=== PATIENT | male | born 1960 | race Hispanic/Latino ===

== ENCOUNTER → 2022-03-16 | Outpatient (CLI) | payer MEDICARE | END | disposition home or self-care (01) | LOC: RAH 11:49 | PROVIDERS: ATTEND Podiatrist | DX: S90.112A Contusion of left great toe without damage to nail, initial encounter (principal); S90.32XA Contusion of left foot, initial encounter; X58.XXXA Exposure to other specified factors, initial encounter; Y93.89 Activity, other specified; Y92.89 Other specified places as the place of occurrence of the external cause; Y99.8 Other external cause status | CPT/HCPCS: 73630 ==

== ENCOUNTER → 2022-03-28 | Outpatient (CLI) | payer MEDICARE | END | disposition home or self-care (01) | LOC: RAH 08:31 | PROVIDERS: ATTEND Podiatrist | DX: E11.51 Type 2 diabetes mellitus with diabetic peripheral angiopathy without gangrene (principal) | CPT/HCPCS: 93922 ==

== ENCOUNTER → 2022-04-21 | Outpatient (CLI) | payer MEDICARE | END | disposition home or self-care (01) | LOC: RAH 08:05 | PROVIDERS: ATTEND Podiatrist | DX: S90.112D Contusion of left great toe without damage to nail, subsequent encounter (principal); E11.51 Type 2 diabetes mellitus with diabetic peripheral angiopathy without gangrene; M79.89 Other specified soft tissue disorders; X58.XXXD Exposure to other specified factors, subsequent encounter | CPT/HCPCS: 73630 ==

== ENCOUNTER 2023-12-28 07:22 | Day surgery (SDC) | payer MEDICARE ==
[2023-12-24 11:21] VITALS: BP 136/67; PULSE 55; RESP 18
[2023-12-24 11:21] LABS: BASOPHILS # (AUTO) 0.04 K/uL (0.00-0.20); BASOPHILS % (AUTO) 0.6 % (0.0-5.0); EOSINOPHILS # (AUTO) 0.32 K/uL (0.00-0.70); EOSINOPHILS % (AUTO) 4.8 % (0.0-8.0); HEMATOCRIT 43.7 % (42-54); IMMATURE GRANULOCYTE ABSOLUTE 0.03 K/uL (0-1); LYMPHOCYTES # (AUTO) 1.4 K/uL (1.0-4.8); LYMPHOCYTES % (AUTO) 21.2 % (21.0-51.0); MEAN CORPUSCULAR HEMOGLOBIN 32.3 pg (27.0-33.0); MEAN CORPUSCULAR HGB CONC 33.2 g/dL (32.0-36.0); MEAN CORPUSCULAR VOLUME 97.3 fL (79-99); MONOCYTES # (AUTO) 0.5 K/uL (0.1-1.0); MONOCYTES % (AUTO) 7.5 % (3.0-13.0); NEUTROPHILS # (AUTO) 4.4 K/uL (1.8-7.7); NEUTROPHILS % (AUTO) 65.4 % (40.0-77.0); PLATELET COUNT (AUTO) 113 K/uL (130-400); RED BLOOD CELL COUNT(AUTO) 4.49 MIL/uL (4.50-6.20); RED CELL DISTRIBUTION WIDTH 13.7 % (11.0-15.5); WHITE BLOOD COUNT (AUTO) 6.7 K/uL (4.8-10.8)
[2023-12-24 11:26] LABS: ALBUMIN 3.6 g/dL (3.5-5.0); BILIRUBIN,TOTAL 0.5 mg/dL (0.2-1.0)
[2023-12-24 11:28] LABS: INR <= 0.93 (0.85-1.15); PROTHROMBIN TIME 10.1 SEC (9.6-11.6)
[2023-12-24 11:29] LABS: PARTIAL THROMBOPLASTIN TIME 27.2 SEC (26.3-35.5)
[2023-12-24 11:38] LABS: CREATININE 10.7 mg/dL (0.5-1.3); POTASSIUM 6.5 mmol/L (3.5-5.1)
[~2023-12-28] VITALS: Ht 170.2 cm; Wt 76.6 kg
[2023-12-28] VITALS (14 sets, daily range): BP systolic 142–175; BP diastolic 68–86; PULSE 63–68; RESP 14–18
[~2023-12-28 07:22] MED LIST: AMLO10TA4 PO; CHOL100040 PO; FOLI1TAB85 PO; HYDR50TA37 PO; INSU100C6 SQ; INSU100V37 SQ; LOSA100T59 PO; METO50TA18 PO; PRAV10TA39 PO
[2023-12-28] MEDS ORDERED: 0.9% NACL 500ML IV.SOLN 500 ML IV ONE (08:51)
[2023-12-28 09:26] LABS: POTASSIUM 4.3 mmol/L (3.5-5.1)
[2023-12-28 09:30] LABS: CREATININE 8.5 mg/dL (0.5-1.3)
[2023-12-28] MEDS ORDERED: proPOFol 10 MG/ML 20ML VIAL IV ONE (09:42)
[2023-12-28] MEDS ORDERED: LIDOCAINE PF 100MG/5ML (2%) SYRINGE 5ML ONE (09:42)
[2023-12-28] MEDS ORDERED: PHENYLEPHRINE HCL 10 MG/ML 1ML VIAL IV ONE (09:42)
[2023-12-28] MEDS ORDERED: ONDANSETRON 4MG INJ ONE (09:43)
[2023-12-28] MEDS ORDERED: FENTanyl CITRate PF 50 MCG/1 ML 2ML VIAL ONE ×2 (09:43→11:42)
[2023-12-28] MEDS: ceFAZolin SODIUM 2 GM VIAL ONE (10:10)
[2023-12-28] MEDS ORDERED: HEParin-NS 1,000 UNIT/500 ML 500 ML IV ONE (10:22)
[2023-12-28] MEDS ORDERED: ePHEDrine SULFate 50 MG/ML AMPULE ONE (10:27)
[2023-12-28] MEDS: BUPIvacaine/PF 0.25% 30ML VIAL IJ ONE (10:44)
[2023-12-28] MEDS: LIDOCAINE HCL 1% 20 ML VIAL ONE (10:45)
[2023-12-28] MEDS: hydrALAZine 20MG/ML VIAL ONE (14:23)
== END 2023-12-28 15:10 | disposition home or self-care (01) ==
LOC: DAH 07:22
PROVIDERS: ATTEND Student in an Organized Health Care Education/Training Program
DX: I72.1 Aneurysm of artery of upper extremity (principal); I12.0 Hypertensive chronic kidney disease with stage 5 chronic kidney disease or end stage renal disease; E11.22 Type 2 diabetes mellitus with diabetic chronic kidney disease; N18.6 End stage renal disease; F17.210 Nicotine dependence, cigarettes, uncomplicated; E78.00 Pure hypercholesterolemia, unspecified; Z79.01 Long term (current) use of anticoagulants; Z99.2 Dependence on renal dialysis; Z79.4 Long term (current) use of insulin; Z79.899 Other long term (current) drug therapy
CPT/HCPCS: 80053; 85025; 85610; 85730; 86850 ×2; 86900 ×2; 86901 ×2; 36415 ×2; 36832; 80048; 82948 ×2; 88304; 93005; A6260; A4663; J7030; C1768; J7040; J3010 ×2; J0665; J2001; J0360; J3490; J2704; J2405; J1644; J2371; J0690; A4649 ×5; C1713 ×3; A4215; A4657; A4213; A4222; A4221; A4216; A4223 ×2; G0168